=== PATIENT | female | born 1955 | race Caucasian/White ===

== ENCOUNTER → 2022-03-09 | Outpatient (CLI) | payer OTHER ==
[~2022-03-09] MED LIST: AMLODIPINE BESY10 MG PO; BUPROPION XL150 MG PO; CEPHALEXIN500 MG PO; CLARITIN10 MG PO; FLONASE ALLER15.8 ML; HYDROCODON-ACE1 EAC6 PO; MINIVELLE1 EACH TD; PERCOCET 5/325 T1 EA PO; VENLAFAXINE HC150 MG PO; ZANAFLEX 4 MG TA4 MG PO
[2022-03-09 11:54] LABS: BUN/CREATININE RATIO 18 (0-10)
== END ==
LOC: OPSV2 10:00
PROVIDERS: Orthopaedic Surgery
DX: Z01.818 Encounter for other preprocedural examination (principal)
CPT/HCPCS: 36415; 80048; 93005

== ENCOUNTER → 2022-03-10 | Day surgery (SDC) | payer OTHER ==
[~2022-03-10] VITALS: Ht 160 cm; Wt 78.9 kg
== END | disposition home or self-care (01) ==
LOC: OR 08:09
DX: S68.110A Complete traumatic metacarpophalangeal amputation of right index finger, initial encounter (principal); W28.XXXA Contact with powered lawn mower, initial encounter; I10 Essential (primary) hypertension; E78.5 Hyperlipidemia, unspecified; Z87.891 Personal history of nicotine dependence; M19.90 Unspecified osteoarthritis, unspecified site; F41.9 Anxiety disorder, unspecified; F32.A Depression, unspecified; Z79.899 Other long term (current) drug therapy
CPT/HCPCS: J0690; J1100; J1885; J2001; J2405; J2704; J2795